=== PATIENT | male | born 1980 | race Caucasian/White ===

== ENCOUNTER 2017-11-21 15:31 | Emergency (ER) | payer OTHER ==
[~2017-11-21] VITALS: Ht 157.5 cm; Wt 69.4 kg
[2017-11-21 15:37] VITALS: Ht 157.5 cm; Wt 69.4 kg
[2017-11-21 19:19] VITALS: BP 146/110
== END 2017-11-21 19:19 | disposition home or self-care (01) ==
LOC: ED 15:31
DX: S61.212A Laceration without foreign body of right middle finger without damage to nail, initial encounter (principal); W23.0XXA Caught, crushed, jammed, or pinched between moving objects, initial encounter; Y93.89 Activity, other specified; Y99.8 Other external cause status; Y92.89 Other specified places as the place of occurrence of the external cause
CPT/HCPCS: 90715; J2001; Q0092